=== PATIENT | female | born 1995 | race Caucasian/White ===

== ENCOUNTER 2016-05-08 20:16 | Emergency (ER) | payer OTHER ==
[~2016-05-08] VITALS: Ht 162.6 cm; Wt 127.0 kg
[~2016-05-08 20:16] MED LIST: LEXAPRO20 MG PO; NEXPLANON68 MG PERCUT; PROTONIX40 MG PO; RISPERDAL1 MG PO; TRAZODONE HCL100 MG PO
== END 2016-05-08 23:10 | disposition short-term general hospital (02) ==
LOC: ER 20:16
DX: R10.11 Right upper quadrant pain (principal); R11.10 Vomiting, unspecified; R51 Headache; Z88.1 Allergy status to other antibiotic agents; Z88.2 Allergy status to sulfonamides; Z88.5 Allergy status to narcotic agent; Z88.6 Allergy status to analgesic agent
CPT/HCPCS: J1885; J2405; J2765

== ENCOUNTER → 2016-05-15 | Outpatient (CLI) | payer SELFPAY | END | disposition short-term general hospital (02) | LOC: CLSURG 08:31 | DX: R10.11 Right upper quadrant pain (principal) ==

== ENCOUNTER 2016-05-24 21:53 | Emergency (ER) | payer SELFPAY ==
[~2016-05-24] VITALS: Ht 162.6 cm; Wt 128.4 kg
== END 2016-05-24 23:36 | disposition short-term general hospital (02) ==
LOC: ER 21:53
DX: R11.2 Nausea with vomiting, unspecified (principal); R10.9 Unspecified abdominal pain; Z90.49 Acquired absence of other specified parts of digestive tract
CPT/HCPCS: J1885; J2405

== ENCOUNTER → 2016-06-05 | Outpatient (CLI) | payer SELFPAY | END | disposition short-term general hospital (02) | LOC: CLSURG 08:12 | DX: Z48.815 Encounter for surgical aftercare following surgery on the digestive system (principal); Z87.19 Personal history of other diseases of the digestive system; Z90.49 Acquired absence of other specified parts of digestive tract ==